=== PATIENT | male | born 1980 | race African-American/Black ===

== ENCOUNTER 2020-05-25 02:56 | Emergency (ER) | payer BC, SELFPAY ==
[2020-05-25 03:01] VITALS: BP 146/72; PULSE 61; RESP 20; TEMP 36; O2SAT 95
--- NOTE | 2020-05-25 03:18 | ED.DENTAL ---
HPI - Dental/Oral General Chief complaint: Dental/Oral Stated complaint: dental pain Time Seen by Provider: 05/25/20 03:00 History of Present Illness HPI Narrative: Patient is a 40-year-old male who presents ER with dental pain. Left side near tooth #16. Began in last 24 hours. Reports mild swelling. No difficulty breathing or swallowing. No drainage. Has known poor dentition. Related Data Allergies Allergy/AdvReac Type Severity Reaction Status Date / Time No Known Allergies Allergy Verified 05/25/20 03:05 Review of Systems Constitutional: Constitutional: Denies fever(s) and Denies weakness ENT: Comments: Dental pain, left upper facial swelling. PMFSH Past Medical History Medical History (Updated 05/25/20 @ 03:27 by Aj Chan MD) Healthy adult male Surgical History Surgical History (Updated 05/25/20 @ 03:20 by Aj Chan MD) No history of previous surgery Social History Social History Gender identity (if verbalized by the patient): Male Exam Narrative: Exam Narrative: GENERAL: Well-appearing, well-nourished, and in no acute distress. HEAD: Normocephalic, atraumatic. ENT: Mucous membranes moist. Poor dentition. Pain at tooth 16, no drainable abscess, mild left upper facial swelling. NEURO: Alert and oriented x3. PSYCH: Normal mood and affect. Course Course Emergency Course: [place] for pain. D/c with abx, f/u with dentist. Vital Signs Vital signs: Vital Signs Temperature 96.8 F L 05/25/20 03:01 Pulse Rate 61 05/25/20 03:01 Respiratory Rate 20 05/25/20 03:01 Blood Pressure 146/72 H 05/25/20 03:01 Pulse Oximetry 95 05/25/20 03:01 Temperature 96.8 F L 05/25/20 03:01 Pulse Rate 61 05/25/20 03:01 Respiratory Rate 20 05/25/20 03:01 Blood Pressure 146/72 H 05/25/20 03:01 Pulse Oximetry 95 05/25/20 03:01 Discharge Plan Discharge Clinical Impression: Pain, dental Patient Disposition: Home, Self-Care Condition: Stable Instructions: Dental Abscess (ED) Additional Instructions: Return to the ER if you cannot swallow, you have worsening pain, or you have other concerns. Prescriptions: New amoxicillin-pot clavulanate [Augmentin] 875-125 mg tablet 1 tablet PO Q12H Qty: 20 RF: 0 hydrocodone-acetaminophen 5-325 mg tablet 1 tablet PO Q6H PRN (Reason: pain) Qty: 7 RF: 0 Follow-up/Referrals: UNKNOWN,DOCTOR [Primary Care Provider] - 1 Week
[2020-05-25] MEDS: HYDROcodone/acetaminophen (*CRX) 5-325 MG TABLET 1 TAB PO (03:25)
[2020-05-25] MEDS: AMOXICILLIN/CLAVULANATE K 875-125 MG TAB 1 TABLET PO (03:30)
[2020-05-25 03:38] VITALS: BP 148/94; PULSE 82; RESP 16; TEMP 36.6; O2SAT 97
== END 2020-05-25 03:46 | disposition home or self-care (01) ==
LOC: ANHED 03:41
PROVIDERS: Emergency Provider Emergency Medicine
DX: K08.89 Other specified disorders of teeth and supporting structures (principal)
CPT/HCPCS: 99283; A9270

== ENCOUNTER 2022-02-19 15:10 | Emergency (ER) | payer OTHER, BC, SELFPAY ==
--- NOTE | ~2022-02-19 | CT_ITS ---
EXAMINATION: CT brain wo con DATE: 02/19/2022 16:53 INDICATION: Head injury. TECHNIQUE: Computed tomography (CT) of the head was performed without intravenous contrast. The mA wa s adjusted according to patient size. Iterative reconstruction technique was employed. The dose-lengt h product was 681.00 mGy-cm. COMPARISON: None FINDINGS: There is no intracranial hemorrhage, acute infarction, or abnormal intracranial mass lesion . The ventricles are normal in size. The orbits are normal. The paranasal sinuses are clear. The mast oid air cells are normal. There is a right frontal lateral scalp hematoma. IMPRESSION: 1. Normal brain. Reviewed, dictated and finalized at location A. IMPRESSION: 1. Normal brain.
--- NOTE | ~2022-02-19 | CT_ITS ---
EXAMINATION: CT cervical spine wo con DATE: 02/19/2022 16:53 INDICATION: Head injury. TECHNIQUE: Computed tomography (CT) of the cervical spine was performed without intravenous contrast. Automated exposure control and iterative reconstruction technique were employed. The dose-length pro duct was 681.00 mGy-cm. COMPARISON: None FINDINGS: There is kyphosis of cervical spine. There is mild chronic anterior wedging of C3 vertebral body. There is moderately decreased disc height at C3-C4 and mildly decreased disc height at C4-C5 a nd C5-C6. Osseous central spinal canal is developmentally small in cervical spine. The following disc levels are specifically discussed: C2-C3: There is mild bilateral uncovertebral joint osteoarthritis. There is mild bilateral facet join t osteoarthritis. There is no neural foraminal stenosis. There is mild central canal stenosis. C3-C4: There is severe bilateral uncovertebral joint osteoarthritis. There is no facet joint osteoart hritis. There is mild bilateral neural foraminal stenosis. There is mild central canal stenosis. C4-C5: There is severe right and moderate left uncovertebral joint osteoarthritis. There is mild bila teral facet joint osteoarthritis. There is moderate right and mild left neural foraminal stenosis. Th ere is mild central canal stenosis. C5-C6: There is mild bilateral uncovertebral joint osteoarthritis. There is no facet joint osteoarthr itis. There is mild right neural foraminal stenosis. There is mild central canal stenosis. C6-C7: There is no uncovertebral joint osteoarthritis. There is no facet joint osteoarthritis. There is no neural foraminal stenosis. There is mild central canal stenosis. C7-T1: There is no uncovertebral joint osteoarthritis. There is mild bilateral facet joint osteoarthr itis. There is no neural foraminal stenosis. There is no central canal stenosis. IMPRESSION: 1. No fracture. 2. Moderate cervical spondylosis. Reviewed, dictated and finalized at location A.
[2022-02-19 15:19] VITALS: PULSE 82; RESP 16; TEMP 37; O2SAT 100
--- NOTE | 2022-02-19 17:02 | ED.HEATRA ---
HPI - Head Injury General Chief complaint: Head Injury Stated complaint: head injury Time Seen by Provider: 02/19/22 16:17 History of Present Illness HPI Narrative: 41-year-old male presents to the emergency room for evaluation of a head injury. Patient states that he was at work unloading a box when a 2 x 4 fell out striking him on the head. Patient denies any LOC or altered mental status. Patient denies headache or dizziness. Patient denies of nausea vomiting or somnolence. Denies taking blood thinners. No visual or hearing changes. Related Data Allergies Allergy/AdvReac Type Severity Reaction Status Date / Time No Known Allergies Allergy Verified 05/25/20 03:05 Review of Systems Review of Systems: CONSTITUTIONAL: Denies fever, chills, or sweats. EYES: Denies visual changes, redness, or discharge. ENT: Denies rhinorrhea, congestion, sore throat, or otalgia. CARDIOVASCULAR: Denies chest pain, palpitations, or edema. RESPIRATORY: Denies cough or dyspnea. GASTROINTESTINAL: Denies abdominal pain, nausea, vomiting, or diarrhea. GENITOURINARY: Denies dysuria or hematuria. SKIN: Denies rash or itching. MUSCULOSKELETAL: Denies back pain, joint pain, or myalgia. NEUROLOGIC: Denies headache, numbness, dizziness, or weakness. PSYCHIATRIC: Denies anxiety or depression. [facility] Past Medical History Medical History Healthy adult male Surgical History Surgical History No history of previous surgery Social History Social History Gender identity (if verbalized by the patient): Male Exam Narrative: GENERAL: Well-appearing, well-nourished, no physical limitations, and in no acute distress. HEAD: Normocephalic, hematoma to right forehead EYES: Conjunctivae normal, PERRLA and EOMI. ENT: External nose normal, Nares clear, no rhinorrhea or epistaxis. Mucous membranes moist. Oropharynx without tonsillar hypertrophy exudate or other lesions. External ears normal, bilateral TMs normal bilaterally NECK: Supple. CHEST: Clear to auscultation. No respiratory distress. No wheezes rales or rhonchi. HEART: Regular rate and rhythm. No murmur heard. Normal peripheral pulses. BACK: No midline cervical tenderness, no step-offs, no bony abnormality, full range of motion. EXTREMITIES: Normal range of motion. No edema. No clubbing or cyanosis SKIN: Warm, dry, no rash. No noted wounds NEURO: No focal deficits. Alert and oriented x3. MAEW. CN's II-XI intact bilaterally, normal gait PSYCH: Cooperative. Normal mood and affect. Course Vital Signs Vital signs: Vital Signs Temperature 37.0 C 02/19/22 15:19 Pulse Rate 82 02/19/22 15:19 Respiratory Rate 16 02/19/22 15:19 Pulse Oximetry 100 02/19/22 15:19 Oxygen Delivery Room Air 02/19/22 15:19 Temperature 37.0 C 02/19/22 15:19 Pulse Rate 82 02/19/22 15:19 Respiratory Rate 16 02/19/22 15:19 Pulse Oximetry 100 02/19/22 15:19 Oxygen Delivery Room Air 02/19/22 15:19 MDM - Head Injury Imaging Data Radiologist's impression: Impressions Head CT 02/19/22 16:54 IMPRESSION: 1. Normal brain. Cervical Spine CT 02/19/22 16:56 IMPRESSION: 1. No fracture. 2. Moderate cervical spondylosis. Discharge Plan Discharge Clinical Impression: Closed head injury Patient Disposition: Home, Self-Care Condition: Stable Instructions: Antibiotic Form, Head Injury (ED) Prescriptions: No Action amoxicillin-pot clavulanate [Augmentin] 875-125 mg tablet 1 tablet PO Q12H Qty: 20 0RF hydrocodone-acetaminophen 5-325 mg tablet 1 tablet PO Q6H PRN (Reason: pain) Qty: 7 0RF Follow-up/Referrals: PHYSICIAN,[employer] [Primary Care Provider] - Time of Disposition: 17:46
== END 2022-02-19 18:18 | disposition home or self-care (01) ==
LOC: ANHED 18:03
PROVIDERS: Emergency Provider Nurse Practitioner Family
DX: S09.90XA Unspecified injury of head, initial encounter (principal); W22.8XXA Striking against or struck by other objects, initial encounter
CPT/HCPCS: 70450; 72125; 99284